=== PATIENT | male | born 1990 | race Caucasian/White ===

== ENCOUNTER 2018-04-02 08:27 | Emergency (ER) | payer BC ==
[2018-04-02 08:49] VITALS: BP 127/75; PULSE 94; TEMP 99.3; BMI 25.8
--- NOTE | 2018-04-02 09:33 | PDOC ---
History of Present Illness - General Chief Complaint: Sore Throat Stated Complaint: Sore Throat Time Seen by Provider: 04/02/18 08:55 History Source: Patient Exam Limitations: Clinical Condition - History of Present Illness Initial Comments: 04/02/18 09:30 Patient with no significant past medication present with complaint of sore throat, persistent cough, runny nose and nasal congestion for 4 days. Patient will was seen by PCP 3 days ago for URI symptoms and discharged home with symptomatic treatment but Pt report have a sore throat yesterday. Patient denies fever. Patient denies any other symptoms Past History - Past Medical History Allergies/Adverse Reactions: Allergies Allergy/AdvReac Type Severity Reaction Status Date / Time No Known Allergies Allergy Verified 04/02/18 08:49 Home Medications: Ambulatory Orders Amoxicillin/Potassium Clav [Augmentin 875-125 Tablet] 1 each PO BID 7 Days #14 tablet 04/02/18 - Suicide/Smoking/Psychosocial Hx Smoking History: Never smoked Have you smoked in the past 12 months: No Information on smoking cessation initiated: No Hx Alcohol Use: No Drug/Substance Use Hx: No Review of Systems - Review of Systems Able to Perform ROS?: Yes Is the patient limited [place] proficient: No Constitutional: No: Chills, Fever HEENTM: Yes: Symptoms Reported, See HPI, Nose Congestion, Throat Pain. No: Eye Pain, Blurred Vision, Tearing, Recent change in vision, Double Vision, Cataracts , Ear Pain, Ocular Prothesis, Ear Discharge, Nose Pain, Tinnitus, Nose Bleeding , Hearing Loss, Throat Swelling, Mouth Pain, Dental Problems, Difficulty Swallowing, Mouth Swelling, Other Respiratory: No: Symptoms reported, See HPI, Cough, Orthopnea, Shortness of Breath, SOB with Exertion, SOB at Rest, Stridor, Wheezing, Productive cough, Hemoptysis, Other Cardiac (ROS): No: Symptoms Reported, See HPI, Chest Pain, Edema, Irregular Heart Rate, Lightheadedness, Palpitations, Syncope, Chest Tightness, Other ABD/GI: No: Nausea, Vomiting All Other Systems: Reviewed and Negative *Physical Exam - Vital Signs Last Vital Signs Temp Pulse Resp BP Pulse Ox 99.3 F 94 H 18 127/75 96 04/02/18 08:47 04/02/18 08:47 04/02/18 08:47 04/02/18 08:47 04/02/18 08:47 - Physical Exam Comments: 04/02/18 09:47 GENERAL: Well developed, well nourished. Awake and alert. No acute distress. HEENT: mildly erythematous pharynx with b/l enlarged erythematous tonsils Normocephalic, atraumatic. PERRLA, EOMI. No conjunctival pallor. Sclera are non- icteric. Moist mucous membranes. NECK: Supple. Full ROM. CARDIOVASCULAR: Regular rate and rhythm. No murmurs, rubs, or gallops. Distal pulses are 2+ and symmetric. PULMONARY: No evidence of respiratory distress. Lungs clear to auscultation bilaterally. No wheezing, rales or rhonchi. ABDOMINAL: Soft. Non-tender. Non-distended. No rebound or guarding. No organomegaly. Normoactive bowel sounds. MUSCULOSKELETAL Normal range of motion at all joints. EXTREMITIES: No cyanosis. No clubbing. No edema. No calf tenderness. SKIN: Warm and dry. Normal capillary refill. No rashes. No jaundice. NEUROLOGICAL: Alert, awake, appropriate. Gait is normal without ataxia. PSYCHIATRIC: Cooperative. Good eye contact. Appropriate mood General Appearance: Yes: Nourished, Appropriately Dressed. No: Apparent Distress Moderate Sedation - Procedure Monitoring Vital Signs: Procedure Monitoring Vital Signs Temperature 99.3 F 04/02/18 08:47 Pulse Rate 94 H 04/02/18 08:47 Respiratory Rate 18 04/02/18 08:47 Blood Pressure 127/75 04/02/18 08:47 O2 Sat by Pulse Oximetry (%) 96 04/02/18 08:47 Medical Decision Making - Medical Decision Making 04/02/18 09:32 Patient with no significant past medication present with complaint of sore throat, persistent cough, runny nose and nasal congestion for 4 days. Patient will was seen by PCP 3 days ago for URI symptoms and discharged home with symptomatic treatment but Pt report have a sore throat yesterday.Clinical exam unremarkable except enlarged tonsils bilaterally. Symptoms likely URI symptoms with tonsillitis. 04/02/18 09:46 rapid strep and flu neg. Throat culture pending. Pt report very painful to swallow. Patient will be treated with Augmentin pending throat culture results with ENT follow-up *DC/Admit/Observation/Transfer Diagnosis at time of Disposition: Pharyngitis Qualifiers: Pharyngitis/tonsillitis etiology: unspecified etiology Qualified Code(s): J02.9 - Acute pharyngitis, unspecified URI (upper respiratory infection) Qualifiers: URI type: unspecified URI Qualified Code(s): J06.9 - Acute upper respiratory infection, unspecified - Discharge Dispostion Disposition: HOME Condition at time of disposition: Stable Decision to Admit order: No - Prescriptions Prescriptions: Amoxicillin/Potassium Clav [Augmentin 875-125 Tablet] 1 each PO BID 7 Days #14 tablet - Referrals Referrals: Shaquille Rodriguez MD [Staff Physician] - - Patient Instructions Printed Discharge Instructions: DI for Pharyngitis/Tonsillopharyngitis -- Adult Additional Instructions: take medications as prescribed. increase fluid intake. Follow-up with referred ENT if symptoms persists - Post Discharge Activity
== END 2018-04-02 09:47 | disposition home or self-care (01) ==
LOC: JERFT 08:27
DX: J02.9 Acute pharyngitis, unspecified (principal); J06.9 Acute upper respiratory infection, unspecified
CPT/HCPCS: 87070; 87804; 87880; 99281-25